=== PATIENT | male | born 1980 | race Caucasian/White ===

== ENCOUNTER 2019-04-25 23:25 | Emergency (ER) | payer BC ==
[~2019-04-25] VITALS: Ht 185.4 cm; Wt 127.0 kg
--- NOTE | 2019-04-25 23:40 | NUR ---
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 PATIENT STAES HE WAS IN HIS BEDROOM AND WAS BENDING DOWN TO GET SOMETHING ON LOWER CABINET AND HE STOOD UP STRAIGHT AND LACERATED HIS FOREHEAD ON AN OPEN CABINET ON THE UPPER LEVEL. DENIES LOC. N/V.
[2019-04-25] MEDS ORDERED: LIDOCAINE 1%-EPI 1:100,000 20 ML VIAL TP ONE (23:45)
[2019-04-25] MEDS ORDERED: TDAP DIPH,PERTUSS,TET VAC/PF 0.5 ML DISP.SYRIN IM ONE ×2 (23:45→23:50)
--- NOTE | 2019-04-26 01:39 | NUR ---
Patient discharged to home in stable conditon WITH FAMILY TAKING PATIENT HOME. Written and verbal after care instructions given. Patient verbalizes understanding of instructions. WALKED OUT OF ER WITH NO DISTRESS NOTED.
[2019-04-26 01:42] VITALS: BP 138/82
== END 2019-04-26 01:43 | disposition home or self-care (01) ==
LOC: ER 23:28
DX: S01.81XA Laceration without foreign body of other part of head, initial encounter (principal); W22.8XXA Striking against or struck by other objects, initial encounter; Y93.89 Activity, other specified; Y92.89 Other specified places as the place of occurrence of the external cause; Y99.8 Other external cause status
CPT/HCPCS: 12013; 90471; 90715; 99283; J3490; A4663